=== PATIENT | male | born 1935 | race Caucasian/White ===

== ENCOUNTER 2022-06-11 07:48 | Inpatient (IN) | payer OTHER, MEDICARE ==
[~2022-06-11] VITALS: Ht 177.8 cm; Wt 52.6 kg
[2022-06-11 08:00] VITALS: BP_SYST 124
[2022-06-11] MEDS ORDERED: NACL 0.9% 1,000 ML IV ONE (08:00)
[2022-06-11 08:38] LABS: BASOPHILS % (AUTO) 0.1 % (0.0-2.0); EOSINOPHILS % (AUTO) 0.1 % (0.0-4.0); HEMATOCRIT 44.2 % (36-54); HEMOGLOBIN 15.4 g/dL (14.0-18.0); LYMPHOCYTES % (AUTO) 10.5 % (20.5-51.5); MEAN CORPUSCULAR HEMOGLOBIN 33 pg (27-31); MEAN CORPUSCULAR HGB CONC 35 % (32-36); MEAN CORPUSCULAR VOLUME 95 fL (79.0-98.0); NEUTROPHILS # (AUTO) 7.1 K/uL (1.8-7.7); NEUTROPHILS % (AUTO) 78.3 % (40.0-70.0); PLATELET COUNT (AUTO) 244 K/uL (130-430); RED BLOOD CELL COUNT(AUTO) 4.65 MIL/uL (4.2-6.2); RED CELL DISTRIBUTION WIDTH 13.5 % (9.0-15.0); WHITE BLOOD COUNT (AUTO) 9.1 K/uL (4.8-10.8)
[2022-06-11 08:41] LABS: ANION GAP 7 (5-15); CALCIUM 9.2 mg/dL (8.4-11.0); CREATININE 1.68 mg/dL (0.55-1.30); GLUCOSE 142 mg/dL (70-99); SODIUM SERUM 132 mmol/L (136-145); UREA NITROGEN, BLOOD 61 mg/dL (8-21)
[2022-06-11 08:51] LABS: ALANINE AMINOTRANSFERASE 38 U/L (12-78); ALBUMIN 3.7 g/dL (3.4-4.8); ASPARTATE AMINOTRANSFERASE 31 U/L (10-37); PHOSPHORUS 4.5 mg/dL (2.7-4.5); TOTAL BILIRUBIN 1.3 mg/dL (0.0-1.0)
[2022-06-11 08:53] LABS: CHLORIDE 85 mmol/L (98-107)
[2022-06-11] MEDS ORDERED: DONE-49 PO (09:13)
[2022-06-11] MEDS ORDERED: VIBE75TA (09:13)
[2022-06-11] MEDS ORDERED: BUME1TAB8 PO (09:13)
[2022-06-11] MEDS ORDERED: VITD2000 PO (09:13)
[2022-06-11] MEDS ORDERED: LIP40 PO (09:13)
[2022-06-11] MEDS ORDERED: ASPI-1393 PO (09:13)
[2022-06-11] MEDS ORDERED: MELA1TAB17 PO (09:13)
[2022-06-11] MEDS ORDERED: KCL 10 mEq in 50 mL (PREMIX) 50 ML IV ONE (09:15)
[2022-06-11] MEDS ORDERED: POTASSIUM CHLORIDE 20 MEQ TAB.PRT.SR PO ONE (09:15)
[2022-06-11] MEDS ORDERED: KCL 20 mEq in D5/0.45NS 1000mL 1,000 ML IV ONE (09:45)
[2022-06-11 11:35] LABS: BILIRUBIN,URINE NEGATIVE (NEGATIVE); BLOOD, URINE NEGATIVE (NEGATIVE); CLARITY/URINE CLEAR (CLEAR); COLOR,URINE YELLOW (YELLOW); GLUCOSE,URINE NEGATIVE (NEGATIVE); KETONES,URINE NEGATIVE (NEGATIVE); LEUKOCYTE ESTERASE ,URINE NEGATIVE (NEGATIVE); NITRITE, URINE NEGATIVE (NEGATIVE); PROTEIN URINE TRACE (NEGATIVE); UROBILINOGEN,URINE 0.2 (0.2-1.0)
[2022-06-11 12:00] VITALS: BP_SYST 103
[2022-06-11 16:16] VITALS: BP_SYST 105
[2022-06-11 20:00] VITALS: BP_SYST 96
[2022-06-12] VITALS: BP_SYST 108
[2022-06-12 07:36] VITALS: BP_SYST 106
[2022-06-12] MEDS ORDERED: HYDROcodone/ACETAMIN 5-325 MG TAB (NORCO/ VICODIN) PO PRN (07:45)
[2022-06-12] MEDS ORDERED: NALOXONE HCL 0.4 MG/ML AMP (NARCAN) IVP PRN ×2 (07:45)
[2022-06-12] MEDS ORDERED: ONDANSETRON HCL 4 MG/2 ML VIAL IVP PRN (07:45)
[2022-06-12] MEDS ORDERED: HYDROcodone/ACETAMIN 10-325 MG TAB PO PRN (07:45)
[2022-06-12] MEDS ORDERED: LORazepam 2 MG/ML VIAL IVP PRN (07:45)
[2022-06-12] MEDS ORDERED: ACETAMINOPHEN 325 MG TABLET PO PRN ×2 (07:45→10:00)
[2022-06-12 09:07] LABS: CALCIUM 8.5 mg/dL (8.4-11.0); CREATININE 1.14 mg/dL (0.55-1.30); GLUCOSE 99 mg/dL (70-99); UREA NITROGEN, BLOOD 48 mg/dL (8-21)
[2022-06-12 09:41] LABS: ANION GAP 3 (5-15); CHLORIDE 92 mmol/L (98-107); SODIUM SERUM 135 mmol/L (136-145)
[2022-06-12] MEDS: D5NS 1,000 ML IV SCH ×2 (10:24→17:07)
[2022-06-12] MEDS ORDERED: ASPIRIN 81 MG TABLET(ECOTRIN) PO ONE (10:30)
[2022-06-12] MEDS ORDERED: BUMETANIDE 1 MG TABLET PO ONE (10:30)
[2022-06-12] MEDS ORDERED: KCL 40 mEq in 100 mL (PREMIX) 100 ML IV ONE (11:00)
[2022-06-12] MEDS: POTASSIUM CHLORIDE 20 MEQ TAB.PRT.SR PO SCH ×2 (11:27→22:49)
[2022-06-12] MEDS: POTASSIUM CHLORIDE 20 mEq in 100 mL (PREMIX) 100 ML x 2 doses IV SCH ×2 (11:29→14:42)
[2022-06-12 15:46] VITALS: BP_SYST 127
[2022-06-12 20:00] VITALS: BP_SYST 91
[2022-06-12] MEDS: ATORVASTATIN 20 MG TABLET PO SCH (20:39)
[2022-06-12] MEDS: CHOLECALCIFEROL (VITAMIN D3) 2,000 UNIT TABLET PO SCH (20:39)
[2022-06-12] MEDS: DONEPEZIL HCL 5 MG TABLET (ARICEPT) PO SCH (20:39)
[2022-06-12] MEDS: BUMETANIDE 1 MG TABLET PO SCH (20:40)
[2022-06-12] MEDS: MELATONIN 5 MG TABLET PO SCH (21:00)
[2022-06-13] VITALS: BP_SYST 96
[2022-06-13] MEDS: D5NS 1,000 ML IV SCH (04:58)
[2022-06-13 07:43] LABS: ALANINE AMINOTRANSFERASE 31 U/L (12-78); ALBUMIN 2.8 g/dL (3.4-4.8); ANION GAP 4 (5-15); ASPARTATE AMINOTRANSFERASE 30 U/L (10-37); CALCIUM 8.7 mg/dL (8.4-11.0); CHLORIDE 99 mmol/L (98-107); CREATININE 1.38 mg/dL (0.55-1.30); GLUCOSE 94 mg/dL (70-99); PHOSPHORUS 2.1 mg/dL (2.7-4.5); POTASSIUM 3.3 mmol/L (3.5-5.1); SODIUM SERUM 140 mmol/L (136-145); TOTAL BILIRUBIN 0.7 mg/dL (0.0-1.0); UREA NITROGEN, BLOOD 45 mg/dL (8-21)
[2022-06-13 08:00] VITALS: BP_SYST 91
[2022-06-13 08:09] LABS: BASOPHILS % (AUTO) 0.3 % (0.0-2.0); EOSINOPHILS # (AUTO) 0.1 K/uL (0.0-0.4); EOSINOPHILS % (AUTO) 1.9 % (0.0-4.0); HEMOGLOBIN 13.6 g/dL (14.0-18.0); LYMPHOCYTES # (AUTO) 1.5 K/uL (1.0-5.5); LYMPHOCYTES % (AUTO) 18.6 % (20.5-51.5); MEAN CORPUSCULAR HEMOGLOBIN 33 pg (27-31); MEAN CORPUSCULAR HGB CONC 35 % (32-36); MEAN CORPUSCULAR VOLUME 95 fL (79.0-98.0); MONOCYTES # (AUTO) 0.9 K/uL (0.0-1.0); MONOCYTES % (AUTO) 10.7 % (1.7-9.3); NEUTROPHILS # (AUTO) 5.5 K/uL (1.8-7.7); NEUTROPHILS % (AUTO) 68.5 % (40.0-70.0); PLATELET COUNT (AUTO) 220 K/uL (130-430); RED BLOOD CELL COUNT(AUTO) 4.09 MIL/uL (4.2-6.2); RED CELL DISTRIBUTION WIDTH 13.8 % (9.0-15.0)
[2022-06-13] MEDS: BUMETANIDE 1 MG TABLET PO SCH ×2 (09:00→20:07)
[2022-06-13] MEDS ORDERED: K PHOS 15 MM in NS 250 ML IV ONE (09:30)
[2022-06-13] MEDS: CHOLECALCIFEROL (VITAMIN D3) 2,000 UNIT TABLET PO SCH ×2 (10:36→20:16)
[2022-06-13] MEDS: ASPIRIN 81 MG TABLET(ECOTRIN) PO SCH (10:36)
[2022-06-13 12:00] VITALS: BP_SYST 84
[2022-06-13] MEDS ORDERED: NACL 0.9% 1,000 ML IV SCH ×2 (14:30→15:30)
[2022-06-13 20:00] VITALS: BP_SYST 95
[2022-06-13] MEDS: DONEPEZIL HCL 5 MG TABLET (ARICEPT) PO SCH (20:16)
[2022-06-13] MEDS: ATORVASTATIN 20 MG TABLET PO SCH (20:16)
[2022-06-13] MEDS: MELATONIN 5 MG TABLET PO SCH (20:17)
[2022-06-14] VITALS: BP_SYST 97
[2022-06-14] MEDS: D5NS 1,000 ML IV SCH ×2 (00:20→09:38)
[2022-06-14 06:53] LABS: BASOPHILS % (AUTO) 0.4 % (0.0-2.0); EOSINOPHILS # (AUTO) 0.2 K/uL (0.0-0.4); EOSINOPHILS % (AUTO) 2.7 % (0.0-4.0); HEMATOCRIT 36.6 % (36-54); HEMOGLOBIN 12.7 g/dL (14.0-18.0); LYMPHOCYTES # (AUTO) 1.5 K/uL (1.0-5.5); LYMPHOCYTES % (AUTO) 19.7 % (20.5-51.5); MEAN CORPUSCULAR HEMOGLOBIN 34 pg (27-31); MEAN CORPUSCULAR HGB CONC 35 % (32-36); MEAN CORPUSCULAR VOLUME 97 fL (79.0-98.0); MONOCYTES # (AUTO) 0.9 K/uL (0.0-1.0); MONOCYTES % (AUTO) 11.8 % (1.7-9.3); NEUTROPHILS % (AUTO) 65.4 % (40.0-70.0); PLATELET COUNT (AUTO) 185 K/uL (130-430); RED BLOOD CELL COUNT(AUTO) 3.78 MIL/uL (4.2-6.2); RED CELL DISTRIBUTION WIDTH 13.9 % (9.0-15.0); WHITE BLOOD COUNT (AUTO) 7.7 K/uL (4.8-10.8)
[2022-06-14 07:54] LABS: ANION GAP 8 (5-15); CALCIUM 7.9 mg/dL (8.4-11.0); CHLORIDE 106 mmol/L (98-107); CREATININE 1.02 mg/dL (0.55-1.30); GLUCOSE 89 mg/dL (70-99); PHOSPHORUS 2.9 mg/dL (2.7-4.5); POTASSIUM 3.5 mmol/L (3.5-5.1); SODIUM SERUM 145 mmol/L (136-145); UREA NITROGEN, BLOOD 41 mg/dL (8-21)
[2022-06-14 08:00] VITALS: BP_SYST 111
[2022-06-14] MEDS: ASPIRIN 81 MG TABLET(ECOTRIN) PO SCH (09:37)
[2022-06-14] MEDS: BUMETANIDE 1 MG TABLET PO SCH (09:37)
[2022-06-14] MEDS: CHOLECALCIFEROL (VITAMIN D3) 2,000 UNIT TABLET PO SCH (09:37)
[2022-06-14 12:00] VITALS: BP_SYST 133
[2022-06-14 13:59] VITALS: BP_SYST 133
== END 2022-06-14 17:59 | disposition home or self-care (01) | DRG 640 ==
LOC: SED 07:48 → STU 09:28
PROVIDERS: ADMIT Preventive Medicine Preventive Medicine/Occupational Environmental Medicine; ATTEND Preventive Medicine Preventive Medicine/Occupational Environmental Medicine
DX: E87.1 Hypo-osmolality and hyponatremia (principal); N17.0 Acute kidney failure with tubular necrosis; E86.0 Dehydration; E87.6 Hypokalemia; E87.2 Acidosis; E11.65 Type 2 diabetes mellitus with hyperglycemia; E88.09 Other disorders of plasma-protein metabolism, not elsewhere classified; E11.22 Type 2 diabetes mellitus with diabetic chronic kidney disease; E78.5 Hyperlipidemia, unspecified; E83.39 Other disorders of phosphorus metabolism; E83.41 Hypermagnesemia; F02.80 Dementia in other diseases classified elsewhere, unspecified severity, without behavioral disturbance, psychotic disturbance, mood disturbance, and anxiety; G20 Parkinson's disease; G47.00 Insomnia, unspecified; I12.9 Hypertensive chronic kidney disease with stage 1 through stage 4 chronic kidney disease, or unspecified chronic kidney disease; I25.10 Atherosclerotic heart disease of native coronary artery without angina pectoris; N18.9 Chronic kidney disease, unspecified
CPT/HCPCS: 36415; 71045; 76770; 80048; 80053; 81003; 82962; 83605; 83735; 84100; 84484; 85025; 87040; 93005; 96374; 99285; G0378; J3480; J7050

== ENCOUNTER 2022-11-29 08:28 | Emergency (ER) | payer OTHER, MEDICARE ==
[~2022-11-29] VITALS: Ht 167.6 cm; Wt 59.0 kg
[~2022-11-29 08:28] MED LIST: ASPI-1393 PO; BUME1TAB8 PO; DONE-49 PO; LIP40 PO; MELA1TAB17 PO; VIBE75TA; VITD2000 PO
--- NOTE | 2022-11-29 08:31 | NUR ---
PT BIBA BLS FOR NOSE BLEED X2.[address] [facility]. PT IS AAOX3. BLEEDING NOTED FROM RIGHT NOSTRIL. ON RA. SKIN INTACT, NO EDEMA, DISTAL PULSES NORMAL. S1S2 NOTED. DENIES PAIN. SIDERAILS UP X2.
[2022-11-29 08:34] VITALS: BP_SYST 117
--- NOTE | 2022-11-29 08:35 | NUR ---
DR. SALEH AT BEDSIDE TO ASSESS PT.
--- NOTE | 2022-11-29 08:40 | NUR ---
RHINO ROCKET PLACED TO R NOSTRIL BY DR. SALEH.
[2022-11-29 09:02] LABS: BASOPHILS % (AUTO) 0.3 % (0.0-2.0); EOSINOPHILS % (AUTO) 0.5 % (0.0-4.0); HEMATOCRIT 36.7 % (36-54); HEMOGLOBIN 12.5 g/dL (14.0-18.0); LYMPHOCYTES # (AUTO) 1.2 K/uL (1.0-5.5); LYMPHOCYTES % (AUTO) 17.1 % (20.5-51.5); MEAN CORPUSCULAR HEMOGLOBIN 33 pg (27-31); MEAN CORPUSCULAR HGB CONC 34 % (32-36); MEAN CORPUSCULAR VOLUME 97 fL (79.0-98.0); MONOCYTES % (AUTO) 14.1 % (1.7-9.3); NEUTROPHILS # (AUTO) 4.9 K/uL (1.8-7.7); PLATELET COUNT (AUTO) 206 K/uL (130-430); RED BLOOD CELL COUNT(AUTO) 3.78 MIL/uL (4.2-6.2); RED CELL DISTRIBUTION WIDTH 13.7 % (9.0-15.0); WHITE BLOOD COUNT (AUTO) 7.2 K/uL (4.8-10.8)
--- NOTE | 2022-11-29 09:46 | NUR ---
Patient given written and verbal discharge instructions and verbalizes understanding. ER MD discussed with patient the results and treatment provided. Patient in stable condition. ID arm band removed. Patient educated on pain management and to follow up with PMD AND COME BACK IN 2 DAYS TO REMOVE NASAL PACKING. Pain Scale . Opportunity for questions provided and answered. Medication side effect fact sheet provided.
== END 2022-11-29 09:46 | disposition home or self-care (01) ==
LOC: SED 08:28
DX: R04.0 Epistaxis (principal); I11.0 Hypertensive heart disease with heart failure; I50.9 Heart failure, unspecified; Z79.899 Other long term (current) drug therapy
CPT/HCPCS: 36415; 85025; 99284

== ENCOUNTER 2022-12-01 10:53 | Emergency (ER) | payer OTHER, MEDICARE ==
[~2022-12-01] VITALS: Ht 160 cm; Wt 49.9 kg
[2022-12-01 11:05] VITALS: BP_SYST 98
[2022-12-01] MEDS ORDERED: TRANEXAMIC ACID 1,000 MG/10 ML VIAL IV ONE (12:15)
[2022-12-01 12:56] VITALS: BP_SYST 98
== END 2022-12-01 12:56 | disposition home or self-care (01) ==
LOC: SED 10:53
DX: R04.0 Epistaxis (principal); I11.0 Hypertensive heart disease with heart failure; I50.9 Heart failure, unspecified; Z79.899 Other long term (current) drug therapy
CPT/HCPCS: 99282; J3490

== ENCOUNTER 2022-12-03 11:43 | Emergency (ER) | payer OTHER, MEDICARE ==
[~2022-12-03] VITALS: Ht 177.8 cm; Wt 56.7 kg
[2022-12-03 12:19] VITALS: BP_SYST 126
[2022-12-03 17:04] VITALS: BP_SYST 126
== END 2022-12-03 17:04 | disposition home or self-care (01) ==
LOC: SED 11:43
DX: R04.0 Epistaxis (principal); I11.0 Hypertensive heart disease with heart failure; I50.9 Heart failure, unspecified; Z79.899 Other long term (current) drug therapy
CPT/HCPCS: 99281

== ENCOUNTER 2022-12-29 20:32 | Emergency (ER) | payer OTHER, MEDICARE ==
[~2022-12-29] VITALS: Ht 177.8 cm; Wt 57.6 kg
[2022-12-29 21:07] VITALS: BP_SYST 112
--- NOTE | 2022-12-29 22:02 | NUR ---
Pt brought by family, A&Ox4, pt presents to ER with nosebleed since 1900, no bleeding noted at this time, pt takes baby aspirin, skin pink and warm, cap refill <3, VSS, will cont to monitor.
--- NOTE | 2022-12-30 | NUR ---
ER examining patient in the waiting room.
[2022-12-30] MEDS ORDERED: OXYM15MI9 NS (00:03)
[2022-12-30 00:10] VITALS: BP_SYST 115
--- NOTE | 2022-12-30 00:10 | NUR ---
Patient given written and verbal discharge instructions and verbalizes understanding. ER MD discussed with patient the results and treatment provided. Patient in stable condition. ID arm band removed. Rx of Afrin given. Patient educated on pain management and to follow up with PMD. Pain Scale 0/10. Opportunity for questions provided and answered. Medication side effect fact sheet provided.
== END 2022-12-30 00:10 | disposition home or self-care (01) ==
LOC: SED 20:32
DX: R04.0 Epistaxis (principal); I10 Essential (primary) hypertension; Z79.899 Other long term (current) drug therapy
CPT/HCPCS: 99282